=== PATIENT | male | born 1990 | race Caucasian/White ===

== ENCOUNTER 2018-03-12 16:03 | Emergency (ER) | payer SELFPAY ==
[~2018-03-12] VITALS: Ht 167.6 cm; Wt 66.0 kg
[2018-03-12 16:43] LABS: ALANINE AMINOTRANSFERASE 28 U/L (12-78); ALBUMIN 3.5 g/dL (3.4-5.0); ANION GAP 5 mmol/L (5-15); CALCIUM 8.6 mg/dL (8.5-10.1); CHLORIDE 110 mmol/L (98-107); CREATININE 1.04 mg/dL (0.7-1.3); SALICYLATE LEVEL 2.5 mg/dL (2.8-20.0)
[2018-03-12 16:46] LABS: ACETAMINOPHEN < 2 mcg/mL (10-30); ALKALINE PHOSPHATASE 72 U/L (45-117); BILIRUBIN,TOTAL 0.4 mg/dL (0.2-1.0); TOTAL PROTEIN 7.1 g/dL (6.4-8.2)
[2018-03-12 16:47] LABS: BASOPHILS # (AUTO) 0.04 x10^3/uL (0-0.1); BASOPHILS % (AUTO) 1 % (0-1); EOSINOPHILS % (AUTO) 2 % (1-7); LYMPHOCYTES # (AUTO) 1.75 x10^3/uL (1-3.4); LYMPHOCYTES % (AUTO) 38 % (22-44); MD NO; MEAN CORPUSCULAR HEMOGLOBIN 28.4 pg (27.5-34.5); MEAN CORPUSCULAR HGB CONC 32.6 g/dL (33.2-36.2); MEAN CORPUSCULAR VOLUME 87.1 fL (81-97); MEAN PLATELET VOLUME 8.5 fL (7.4-10.4); MONOCYTES # (AUTO) 0.31 x10^3/uL (0.2-0.8); MONOCYTES % (AUTO) 7 % (2-9); NEUTROPHILS # (AUTO) 2.47 x10^3/uL (1.8-6.8); NEUTROPHILS % (AUTO) 53 % (42-75); PLATELET COUNT 261 x10^3/uL (130-400); RED BLOOD COUNT 4.87 x10^6/uL (4.38-5.82); RED CELL DISTRIBUTION WIDTH 12.4 % (9.4-14.8)
[2018-03-12] MEDS ORDERED: LORazepam 2 MG/ML, 1ML IM ONE (19:00)
[2018-03-12] MEDS ORDERED: LORazepam 2 MG/ML, 1ML ONE (19:01)
[2018-03-12 22:15] VITALS: BP 112/77
== END 2018-03-12 23:18 | disposition home or self-care (01) ==
LOC: ED 16:31
DX: F29 Unspecified psychosis not due to a substance or known physiological condition (principal)
CPT/HCPCS: 36415; 80053; 80307; 80329; 85025; 96372; 99284; J2060; G0480

== ENCOUNTER 2018-03-24 17:14 | Observation (INO) | payer SELFPAY ==
[~2018-03-24] VITALS: Ht 167.6 cm; Wt 63.8 kg
--- NOTE | 2018-03-24 17:14 | NUR ---
[facility]IB[facility] FOR PSYCH EVAL, +LEGAL 200O (DELUSIONAL, DISORGANIZED THOUGHTS, INABILITY TO CARE FOR SELF), PT REFUSES TO ANSWER QUESTIONS/RESPOND TO STAFF, REFUSES ALL PT CARE INCL VS/PMH; PT PWD, NADN; PT IN SAFE ENVIRONMENT, SITTER IN FULL VIEW.
--- NOTE | 2018-03-24 17:35 | NUR ---
PT REFUSES TO COOPERATE WITH STAFF OR ANSWER QUESTIONS. STAFF ATTEMPTED TO AID PT WITH BELONGINGS & PT STATES "DON'T FUCKING TOUCH MY SHIRT!", SECURITY CALLED FOR ASSIST, EMPLOYMENT ASSISTANT AWARE.
--- NOTE | 2018-03-24 17:45 | NUR ---
pt placed in 4-pt restraints- ERP order in place.
--- NOTE | 2018-03-24 17:46 | NUR ---
pants cut off as pt refused to cooperate, remaining personal belongings x1 bag placed in locker.
[2018-03-24] MEDS ORDERED: ZIPRASIDONE 20 MG INJ IM ONE ×2 (18:00→18:05)
--- NOTE | 2018-03-24 18:05 | NUR ---
pt laying on gurney awake & calm, does not respond to staff questions, NAD, no needs at this time, pt remains in safe environment, sitter in full view, restraints remain in place.
[2018-03-24 18:24] LABS: BASOPHILS % (AUTO) 0 % (0-1); EOSINOPHILS # (AUTO) 0.05 x10^3/uL (0-0.4); EOSINOPHILS % (AUTO) 0 % (1-7); LYMPHOCYTES # (AUTO) 1.01 x10^3/uL (1-3.4); LYMPHOCYTES % (AUTO) 8 % (22-44); MD NO; MEAN CORPUSCULAR HEMOGLOBIN 28.3 pg (27.5-34.5); MEAN CORPUSCULAR HGB CONC 32.9 g/dL (33.2-36.2); MEAN CORPUSCULAR VOLUME 86.1 fL (81-97); MONOCYTES # (AUTO) 0.55 x10^3/uL (0.2-0.8); MONOCYTES % (AUTO) 5 % (2-9); NEUTROPHILS # (AUTO) 10.63 x10^3/uL (1.8-6.8); NEUTROPHILS % (AUTO) 87 % (42-75); PLATELET COUNT 255 x10^3/uL (130-400); RED BLOOD COUNT 5.09 x10^6/uL (4.38-5.82); RED CELL DISTRIBUTION WIDTH 13.2 % (9.4-14.8)
[2018-03-24 18:28] LABS: ALBUMIN 3.8 g/dL (3.4-5.0); ANION GAP 8 mmol/L (5-15); CALCIUM 8.3 mg/dL (8.5-10.1); CHLORIDE 108 mmol/L (98-107)
[2018-03-24 18:33] LABS: ALANINE AMINOTRANSFERASE 25 U/L (12-78); ALKALINE PHOSPHATASE 82 U/L (45-117); BILIRUBIN,TOTAL 0.4 mg/dL (0.2-1.0); CREATININE 1.05 mg/dL (0.7-1.3); SALICYLATE LEVEL 2.5 mg/dL (2.8-20.0); TOTAL PROTEIN 7.6 g/dL (6.4-8.2)
[2018-03-24 18:37] LABS: ACETAMINOPHEN < 2 mcg/mL (10-30)
--- NOTE | 2018-03-24 18:38 | NUR ---
meal tray given
--- NOTE | 2018-03-24 18:54 | NUR ---
report given to Tereso
--- NOTE | 2018-03-24 18:58 | NUR ---
received report from NITIN Armstrong.
--- NOTE | 2018-03-24 19:00 | NUR ---
restaints down to 2 points. patient states that he is going to cooperate.
[2018-03-24] MEDS ORDERED: ONDANSETRON ODT 4 MG PO PRN (19:30)
[2018-03-24] MEDS ORDERED: BISACODYL 10 MG SUPP PR PRN (19:30)
[2018-03-24] MEDS ORDERED: ZIPRASIDONE 20 MG INJ IM PRN (19:30)
[2018-03-24] MEDS ORDERED: ACETAMINOPHEN 325 MG TABLET PO PRN (19:30)
[2018-03-24] MEDS ORDERED: POLYETHYLENE GLYCOL 17 GM PACKET PO PRN (19:30)
--- NOTE | 2018-03-24 19:30 | NUR ---
patient released from restraints. sleeping, respiration unlabored. sitter at the door for safety.
--- NOTE | 2018-03-24 20:48 | NUR ---
no changes. patient sleeping. sitter at the door.
--- NOTE | 2018-03-24 22:51 | NUR ---
VSS. no changes. sleeping.
--- NOTE | 2018-03-25 00:02 | NUR ---
report to NITIN Bowser
--- NOTE | 2018-03-25 00:06 | NUR ---
RECEIVED REPORT FROM NITIN HARRY. PT. RESTING ON GURNEY WITH NADN. EVEN, NON-LABORED RESPIRATIONS VISIBLE. PT. CHAINGING POSITIONS FREQUENTLY. SITTER IN DOORWAY. PT. HAS URINAL AT BS AND IS AWARE OF NEED FOR UA. WILL CONTINUE TO MONITOR AND COLLECT URINE HESHAM. ROOM IS SECURED.
--- NOTE | 2018-03-25 01:37 | NUR ---
PT. CONTINUES RESTING ON GURNEY WITH EYES CLOSED. EVEN, NON-LABORED RESPIRATIONS VISIBLE. ROOM IS SECURED. SITTER REMAINS IN BRIDGES. AT THIS POINT NO URINE HAS BEEN PROVIDED FOR UA.
--- NOTE | 2018-03-25 02:34 | NUR ---
PT. CONTINUES RESTING ON GURNEY WITH EYES CLOSED. NADN. EVEN, NON-LABORED RESPIRATIONS VISIBLE. ROOM IS SECURED. SITTER IN BRIDGES.
--- NOTE | 2018-03-25 03:44 | NUR ---
PT. CONTINUES RESTING ON GURNEY WITH EYES CLOSED. EVEN, NON-LABORED RESPIRATIONS VISIBLE. ROOM SECURED. SITTER IN DOORWAY. STILL AWAITING URINE SAMPLE.
--- NOTE | 2018-03-25 06:17 | NUR ---
PT. GOT OUT OF BED AND PER SITTER WAS UNABLE TO URINATE BUT DID TRY. PT. OFFERED PO FLUIDS. NO DISTRESS NOTED. SITTER IN BRIDGES. ROOM SECURED.
--- NOTE | 2018-03-25 07:01 | NUR ---
REPORT TO NITIN RIZVI.
--- NOTE | 2018-03-25 07:15 | NUR ---
REC REPORT SITTER IN THE BRIDGES ROOM SECURE
--- NOTE | 2018-03-25 09:37 | NUR ---
PT MOVED TO ROOM 40. PT AMBULATES WITH STEADY GAIT. PT GIVEN MEAL TRAY. PT REQUESTING TO USE BR. PT GIVEN URINE CUP FOR ANALYSIS. PT DID NOT PROVIDE URINE SPECIMEN. PT RETURNED TO ROOM. HOSPITAL BED ORDERED FOR PT. SITTER OUTSIDE ROOM PROVIDING DIRECT PT OBSERVATION.
--- NOTE | 2018-03-25 12:04 | NUR ---
LUNCH TRAY ORDERED FOR PT. PT MOVED TO HOSPITAL BED, PT ALSO GIVEN TV REMOTE FOR DISTRATCTION. PT STATES WILL NOT COOPERATE WITH ANY EVALUATION AT THIS TIME. PT OFFERED MEDICATION TO HELP RELAX AND PT REFUSING ANY MEDICAITONS AT THIS TIME. PT COOPERATIVE WITH DIRECTIONS AT THIS TIME. PT DENIES ANY OTHER NEEDS/WANTS AT THIS TIME. PT REOIRIENTED TO SITUATION REGARDING LEGAL HOLD, PT NODDED HIS HEAD IN ACKNOWLEDGEMENT OF SITUATION. PT IN BED. SITTER OUTSIDE ROOM PROVIDING DIRECT PT OBSERVATION.
--- NOTE | 2018-03-25 13:42 | NUR ---
PT RESTING IN BED, NAD, SITTER OUTSIDE ROOM PROVIDING DIRECT PT OBSERVATION.
--- NOTE | 2018-03-25 13:59 | NUR ---
WEIGHER OPERATOR REQUESTING MY PRESENCE WITH PT. ATTEMPTED TO COMMUNICATE WITH PT. PT NON-VERBAL, REFUSING TO MAKE EYE CONTACT AND REFUSING TO RESPOND TO INTERACTION AT THIS TIME. THIS RN STEPPED AWAY AND INSTRUCTED PT THAT IF HE NEEDS ANYTHING THAT HE SHOULD CONACT ME WITH ANY QUESTIONS OR CONCERNS.
[2018-03-25] MEDS ORDERED: ZIPRASIDONE 20 MG INJ IM ONE ×2 (15:00→15:01)
--- NOTE | 2018-03-25 15:28 | NUR ---
MANAGER MASSAGE DEPARTMENT CALLED THIS RN TO PT ROOM PT WAS WITNESSED TO BE HITTING SELF IN HEAD. PT ASKED TO CEASE ACTIVITIES. PT CONTINUED TO BE NON-VERBAL AND AVOID EYE CONACT. PT MEDICATED PER MAR FOR INCREASED AGITATION AND AGGRESSIVE BEHAVIORS. PT REFUSING TO SPEAK AT THIS TIME.
--- NOTE | 2018-03-25 17:16 | NUR ---
PACKET FAXED TO [facility]. STILL HAS NOT PROVIDED A URINE SAMPLE FOR DOA AND WHEN ONE IS OBTAINED, RESULTS WILL NEED TO BE FAXED TO [facility].
--- NOTE | 2018-03-25 18:54 | NUR ---
PT SLEEPING, NAD, SITTER OUTSIDE ROOM PROVIDING DIRECT PT OBSERVATION.
--- NOTE | 2018-03-25 20:21 | NUR ---
PT SLEEPING, NAD, SITTER OUTSIDE ROOM PROVIDING DIRECT PT OBSERVATION. PT REFUSING TO GIVE VERBAL RESPONSES OR MAKE EYE CONTACT WITH INTERACTIONS.
--- NOTE | 2018-03-25 21:07 | NUR ---
PT BEDSIDE REPORT FROM MANJU TAVERAS. THIS RN TO ASSUME. PT SLEEPING COMFORTABLY ON GURYERMO. RR EVEN AND UNLABORED. GETACHEWN. ROLLER DOORS IN PLACE. SITTER IN HALLWAY.
--- NOTE | 2018-03-25 22:09 | NUR ---
PT SLEEPING COMFORTABLY ON GURNEY. RR EVEN AND UNLABORED. NADN. PT E Addendum: 03/25/18 at 2209 by MELANIE PT SLEEPING COMFORTABLY ON GURNEY. RR EVEN AND UNLABORED. NADN. PT EASILY ROUSABLE TO NAME. PT NOT COMMUNICATING W/ STAFF. SITTING W/ ARMS CROSSED AND NOT VERBALE AT THIS TIME. REMINDED WE NEED A UA.
--- NOTE | 2018-03-26 00:10 | NUR ---
UA COLLECTED AND SENT TO LAB AT THIS TIME. NO IMMEDIATE NEEDS FROM PT AT THIS TIME.
[2018-03-26 00:21] LABS: MICROSCOPIC AUTO
[2018-03-26 00:22] LABS: CULTURE INDICATED? NO
[2018-03-26 00:25] LABS: AMPHETAMINE SCREEN, URINE Negative (Negative); BARBITURATE SCREEN, URINE Negative (Negative); BENZODIAZEPINE SCREEN, URINE Negative (Negative); CANNABINOID SCREEN, URINE Positive (Negative); COCAINE SCREEN, URINE Negative (Negative); METHADONE SCREEN, URINE Negative (Negative); OPIATE SCREEN, URINE Negative (Negative)
--- NOTE | 2018-03-26 00:48 | NUR ---
PT SLEEPING COMFORTABLY ON HOSPITAL BED. NADN. RR EVEN AND UNLABORED. ROLLER DOORS IN PLACE. SITTER IN HALLWAY.
[2018-03-26 02:46] VITALS: BP 98/62
[2018-03-26 07:48] VITALS: BP 103/66
[2018-03-26 19:50] VITALS: BP 117/75
[2018-03-27] MEDS: DIPHENHYDRAMINE 50 MG CAPSULE PO PRN (02:38)
[2018-03-27] MEDS: LORazepam 1MG TABLET PO SCH ×2 (12:28→20:07)
[2018-03-27] MEDS: OLANZAPINE 5 MG TABLET PO SCH ×2 (12:29→20:06)
[2018-03-28] MEDS: LORazepam 1MG TABLET PO SCH ×2 (08:39→21:20)
[2018-03-28] MEDS: OLANZAPINE 5 MG TABLET PO SCH ×2 (08:40→21:20)
[2018-03-28 08:43] LABS: ANION GAP 8 mmol/L (5-15); CALCIUM 8.5 mg/dL (8.5-10.1); CHLORIDE 110 mmol/L (98-107); CREATININE 0.86 mg/dL (0.7-1.3)
[2018-03-28 19:24] VITALS: BP 111/73
[2018-03-29] MEDS: OLANZAPINE 5 MG TABLET PO SCH ×2 (08:17→20:16)
[2018-03-29] MEDS: LORazepam 1MG TABLET PO SCH ×2 (08:17→20:16)
[2018-03-29 13:06] LABS: BASOPHILS # (AUTO) 0.03 x10^3/uL (0-0.1); BASOPHILS % (AUTO) 1 % (0-1); EOSINOPHILS % (AUTO) 2 % (1-7); LYMPHOCYTES # (AUTO) 1.27 x10^3/uL (1-3.4); LYMPHOCYTES % (AUTO) 27 % (22-44); MD NO; MEAN CORPUSCULAR HEMOGLOBIN 27.3 pg (27.5-34.5); MEAN CORPUSCULAR HGB CONC 31.5 g/dL (33.2-36.2); MEAN CORPUSCULAR VOLUME 86.8 fL (81-97); MEAN PLATELET VOLUME 9.2 fL (7.4-10.4); MONOCYTES # (AUTO) 0.67 x10^3/uL (0.2-0.8); MONOCYTES % (AUTO) 14 % (2-9); NEUTROPHILS # (AUTO) 2.67 x10^3/uL (1.8-6.8); NEUTROPHILS % (AUTO) 56 % (42-75); PLATELET COUNT 220 x10^3/uL (130-400); RED BLOOD COUNT 4.87 x10^6/uL (4.38-5.82); RED CELL DISTRIBUTION WIDTH 12.8 % (9.4-14.8)
[2018-03-29 19:58] VITALS: BP 120/81
[2018-03-30 07:58] VITALS: BP 106/67
[2018-03-30] MEDS: LORazepam 1MG TABLET PO SCH ×2 (08:12→21:00)
[2018-03-30] MEDS: OLANZAPINE 5 MG TABLET PO SCH ×2 (08:12→21:00)
[2018-03-30 19:22] VITALS: BP 109/78
[2018-03-31 07:43] VITALS: BP 101/64
[2018-03-31] MEDS: OLANZAPINE 5 MG TABLET PO SCH ×2 (09:46→20:22)
[2018-03-31] MEDS: LORazepam 1MG TABLET PO SCH ×2 (09:46→20:22)
[2018-03-31 19:24] VITALS: BP 124/79
[2018-04-01] MEDS: LORazepam 1MG TABLET PO SCH ×2 (08:45→20:00)
[2018-04-01] MEDS: OLANZAPINE 5 MG TABLET PO SCH ×2 (08:46→20:00)
[2018-04-01 19:40] VITALS: BP 104/70
[2018-04-02] MEDS: OLANZAPINE 5 MG TABLET PO SCH ×2 (08:05→20:49)
[2018-04-02] MEDS: LORazepam 1MG TABLET PO SCH ×2 (08:05→20:49)
[2018-04-02 08:26] VITALS: BP 111/73
[2018-04-03] MEDS: LORazepam 1MG TABLET PO SCH ×2 (11:47→20:02)
[2018-04-03] MEDS: OLANZAPINE 5 MG TABLET PO SCH ×2 (11:47→20:02)
[2018-04-03 19:16] VITALS: BP 120/78
[2018-04-04 07:29] VITALS: BP 103/62
[2018-04-04] MEDS: OLANZAPINE 5 MG TABLET PO SCH ×2 (08:04→20:03)
[2018-04-04] MEDS: LORazepam 1MG TABLET PO SCH ×2 (08:04→20:03)
[2018-04-04 19:28] VITALS: BP 113/74
[2018-04-04] MEDS: DIPHENHYDRAMINE 50 MG CAPSULE PO PRN (20:03)
[2018-04-05 08:41] VITALS: BP 99/61
[2018-04-05] MEDS: LORazepam 1MG TABLET PO SCH ×2 (09:00→20:51)
[2018-04-05] MEDS: OLANZAPINE 5 MG TABLET PO SCH ×2 (10:12→20:51)
[2018-04-05 19:28] VITALS: BP 117/77
[2018-04-05] MEDS: DIPHENHYDRAMINE 50 MG CAPSULE PO PRN (20:51)
[2018-04-06] MEDS: DIPHENHYDRAMINE 50 MG CAPSULE PO PRN (02:27)
[2018-04-06 07:26] VITALS: BP 105/70
[2018-04-06] MEDS: OLANZAPINE 5 MG TABLET PO SCH ×3 (08:36→21:00)
[2018-04-06] MEDS: LORazepam 1MG TABLET PO SCH ×3 (08:36→21:00)
[2018-04-06 20:19] VITALS: BP 115/80
[2018-04-07] MEDS: OLANZAPINE 5 MG TABLET PO SCH ×2 (09:06→21:23)
[2018-04-07] MEDS: LORazepam 1MG TABLET PO SCH ×2 (09:06→21:22)
[2018-04-07 19:46] VITALS: BP 110/71
[2018-04-08 08:13] VITALS: BP 107/69
[2018-04-08] MEDS: LORazepam 1MG TABLET PO SCH ×2 (10:22→20:08)
[2018-04-08] MEDS: OLANZAPINE 5 MG TABLET PO SCH ×2 (10:22→20:08)
[2018-04-08 20:20] VITALS: BP 113/83
[2018-04-09 07:20] VITALS: BP 104/68
[2018-04-09] MEDS: LORazepam 1MG TABLET PO SCH ×2 (08:40→21:00)
[2018-04-09] MEDS: OLANZAPINE 5 MG TABLET PO SCH ×2 (08:41→21:00)
[2018-04-09 19:36] VITALS: BP 114/86
[2018-04-10 08:01] VITALS: BP 113/71
[2018-04-10] MEDS: LORazepam 1MG TABLET PO SCH ×2 (10:58→20:22)
[2018-04-10] MEDS: OLANZAPINE 5 MG TABLET PO SCH ×2 (10:58→20:22)
[2018-04-10 19:17] VITALS: BP 110/75
[2018-04-11 08:15] VITALS: BP 100/65
[2018-04-11] MEDS: LORazepam 1MG TABLET PO SCH ×2 (09:55→20:53)
[2018-04-11] MEDS: OLANZAPINE 5 MG TABLET PO SCH ×2 (09:55→20:53)
[2018-04-11 19:48] VITALS: BP 105/74
[2018-04-12] MEDS: OLANZAPINE 5 MG TABLET PO SCH ×2 (07:49→20:30)
[2018-04-12] MEDS: LORazepam 1MG TABLET PO SCH ×2 (07:49→20:30)
[2018-04-12 07:57] VITALS: BP 99/67
[2018-04-13 04:27] VITALS: BP 108/76
[2018-04-13] MEDS: OLANZAPINE 5 MG TABLET PO SCH ×2 (08:15→20:29)
[2018-04-13] MEDS: LORazepam 1MG TABLET PO SCH ×2 (08:15→20:30)
[2018-04-13 08:30] VITALS: BP 133/75
[2018-04-13 20:05] VITALS: BP 115/80
[2018-04-14 08:00] VITALS: BP 101/65
[2018-04-14] MEDS: LORazepam 1MG TABLET PO SCH ×3 (08:14→20:08)
[2018-04-14] MEDS: OLANZAPINE 5 MG TABLET PO SCH ×3 (08:14→20:08)
[2018-04-14 19:49] VITALS: BP 107/75
[2018-04-15 07:35] VITALS: BP 100/65
[2018-04-15] MEDS: OLANZAPINE 5 MG TABLET PO SCH ×2 (09:21→20:45)
[2018-04-15] MEDS: LORazepam 1MG TABLET PO SCH ×2 (09:24→20:44)
[2018-04-15 20:21] VITALS: BP 121/99
[2018-04-16 07:57] VITALS: BP 100/60
[2018-04-16] MEDS: LORazepam 1MG TABLET PO SCH (09:52)
[2018-04-16] MEDS ORDERED: OLANZAPINE 5 MG TABLET PO SCH (10:00)
[2018-04-16] MEDS ORDERED: LORA-446 PO (11:00)
[2018-04-16] MEDS ORDERED: OLAN5TAB9 PO (11:00)
== END 2018-04-16 11:47 ==
LOC: ED 17:24 → EDIP 19:16 → 2N 03-26 02:36
PROVIDERS: ADMIT Internal Medicine; ATTEND Internal Medicine
DX: F29 Unspecified psychosis not due to a substance or known physiological condition (principal); F22 Delusional disorders; F17.200 Nicotine dependence, unspecified, uncomplicated; F20.2 Catatonic schizophrenia; Z91.14 Patient's other noncompliance with medication regimen
CPT/HCPCS: 36415; 80048; 80053; 80307; 80329; 81001; 85025; 96372; 99284; G0378; J3486; G0480